=== PATIENT | female | born 1955 | race African-American/Black ===

== ENCOUNTER 2018-03-22 15:51 | Emergency (ER) | payer OTHER, MEDICAID ==
[~2018-03-22] VITALS: Ht 170.2 cm; Wt 74.8 kg
[~2018-03-22 15:51] MED LIST: ACETAMINOPHEN-1 EAC1 PO; ACIDOPHILUS1 EAC4 PO; AMARYL2 MG PO; ASPIRIN81 M2 PO; BACTRIM DS TAB1 EACH PO; BUSPAR15 MG; CARDIZEM CD240 MG PO; CARTIA XT240 M1 PO; CEFPODOXIME PR200 M1 PO; CELEBREX400 MG; CENTRUM SILVER1 EAC4 PO; CIPRO500 M1 PO; CIPROFLOXACIN500 M1 PO; CLEOCIN HCL150 MG PO; COLACE100 MG PO; DAILY VALUE1 EAC1 PO; EFFEXOR XR75 MG PO; FLAGYL500 MG PO; FOLIC ACID1 MG PO; GABAPENTIN 100100 MG PO; GLIPIZIDE 5 MG; GLUCOPHAGE500 MG PO; HARVONI 90-4001 EACH PO; HTN MED; HUMALOG100 UNIT/2 SQ; HYDROCHLOROTHIA25 M2 PO; INDERAL 20 MG T20 M1 PO; INSULIN LANTUS; KEFLEX500 MG PO; KEPPRA 500 MG500 M1 PO; KLOR-CON 1010 MEQ PO; LANTUS100 UNIT/M SUBQ; LASIX 20 MG TAB20 MG PO; LISINOPRIL20 MG PO; LOW DOSE ASPIRI81 M1; MAGNESIUM OXID400 MG PO; MAGOX 400400 MG PO; METFORMIN HCL500 MG PO; METOPROLOL SUC100 MG PO; MULTIVITAMINS PO; NAPROSYN500 MG PO; NEURONTIN 400400 M1 PO; NEURONTIN600 MG PO; NORVASC5 MG PO; ONDANSETRON HCL4 M2 PO; OXYCODONE HCL 55 MG PO; PEPCID20 MG PO; POTASSIUM20 PO; PRED FORTE 1% EY5 M1 OP; PREDNISONE 10 M10 MG PO; PREVACID30 MG PO; PRINIVIL40 MG PO; PROAIR HFA8.5 GM INH; PROPRANOLOL 1010 MG PO; PROTONIX40 M1 PO; TOPROL XL100 MG PO; TRAZODONE 150150 M1 PO; VANCOCIN 250 M250 M1 PO; VANCOMYCIN100 MG/ML PO; VENLAFAXINE HC150 M1 PO; VISTARIL 25 MG25 M1 PO; VITAMIN B-1100 M1 PO; VITAMIN B-12500 MCG PO; VITAMIN D 5050000 I1 PO; XANAX 0.5 MG0.5 MG PO; XANAX1 MG PO; ZOCOR 10 MG TAB10 MG PO; ZYPREXA5 MG PO; [UNRECOGNIZED DRUG - OTHER]
[2018-03-22] MEDS ORDERED: SYMBICORT160 MCG/4. INH (16:04)
[2018-03-22] MEDS ORDERED: BACTRIM DS TAB1 EACH PO (16:17)
[2018-03-22] MEDS ORDERED: CONSTULOSE10 GM/15 M PO (16:17)
[2018-03-22] MEDS ORDERED: XIFAXAN550 M1 PO (16:18)
[2018-03-22] MEDS ORDERED: EFFEXOR 5050 MG/1 T1 PO (16:18)
[2018-03-22] MEDS ORDERED: TRAZODONE 150150 M1 PO (16:19)
[2018-03-22] MEDS ORDERED: LISINOPRIL5 MG PO (16:19)
[2018-03-22] MEDS ORDERED: LIPITOR 20 MG T20 M1 PO (16:20)
[2018-03-22 16:39] LABS: ABSOLUTE BASOPHILS 0.1 thou/uL (0.0-0.2); ABSOLUTE EOSINOPHILS 0.3 thou/uL (0.0-0.7); ABSOLUTE LYMPHOCYTES 1.9 thou/uL (0.8-5.3); ABSOLUTE MONOCYTES 0.9 thou/uL (0.0-1.2); ABSOLUTE NEUTROPHILS 5.5 thou/uL (1.6-8.1); BASOPHILS 0.9 %; EOSINOPHILS 3.6 %; HEMATOCRIT 34.4 % (37.0-47.0); HEMOGLOBIN 11.3 gm/dL (12.0-15.0); MCH 29.1 pg (26.0-34.0); MCHC 32.9 g/dL (28.0-37.0); MCV 88.4 fL (80.0-100.0); MONOCYTES 10.4 %; NUCLEATED RBCS 0 /100WBC; PLATELET COUNT* 259 thou/uL (150-400); POLYS 63.1 %; RBC 3.89 mil/uL (4.20-5.00); RDW-CV 14.9 % (10.5-14.5); WBC 8.8 thou/uL (4.0-11.0)
[2018-03-22 16:48] LABS: ANION GAP 10 mmol/L (7-16); APTT 31.6 Seconds (25.0-31.3); BUN 36 mg/dL (7-18); CALCIUM 9.7 mg/dL (8.5-10.1); CHLORIDE 99 mmol/L (98-107); CO2 27 mmol/L (21-32); CREATININE 3.9 mg/dL (0.6-1.3); GLUCOSE 198 mg/dL (70-99); INR 1.2; POTASSIUM 4.3 mmol/L (3.5-5.1); PROTIME 12.1 Seconds (9.20-11.50); SODIUM 136 mmol/L (136-145)
[2018-03-22 16:56] LABS: ALBUMIN 3.1 g/dL (3.4-5.0); ALKALINE PHOSPHATASE 78 U/L (46-116); LIPASE 703 U/L (73-393); SGOT 28 U/L (15-37); SGPT 16 U/L (30-65); TOTAL BILIRUBIN 0.3 mg/dL (<0.1-1.0); TOTAL PROTEIN 7.6 g/dL (6.4-8.2); TROPONIN-I LEVEL <0.06 ng/mL (<0.06)
[2018-03-22 20:50] VITALS: BP 125/76
--- NOTE | 2018-03-23 12:04 | EKG ---
[place] [address] ELECTROCARDIOGRAM REPORT Name: FRANKIE RAPP [facility] [id number] Admission: 03/22/18 Attend Phys: Discharge: 03/22/18 Date of : 57 Report #: [id number] THIS REPORT FOR: //name// [facility] ED Test Date: 2018-03-22 Test Time: 16:37:10 Pat Name: FRANKIE RAPP Department: Room: Gender: F [employer] Law Clerk: ZULAY Lyman : 1955 Requested By: Windy Mello Order Number: [id number] MD: Robe Simmons Measurements Intervals [place] Rate: 87 P: 44 [place]: 143 QRS: -53 QRSD: 138 T: 20 QT: 383 QTc: 461 Interpretive Statements Sinus rhythm RBBB and LAFB Borderline ST elevation, lateral leads Compared to ECG 04/06/2016 21:34:35 ST (T wave) deviation now present Electronically Signed On 03-23-2018 12:04:13 CDT by Robe Simmons [email or web address] <ELECTRONICALLY SIGNED> By: Robe Simmons MD, [facility] 03/23/18 1204 [id number] Robe Simmons MD, [facility] /EPI
== END 2018-03-22 20:53 | disposition short-term general hospital (02) ==
LOC: M.ERS 15:51
PROVIDERS: Nurse Practitioner Family
DX: R18.8 Other ascites (principal); N17.9 Acute kidney failure, unspecified; I10 Essential (primary) hypertension; F32.9 Major depressive disorder, single episode, unspecified; E11.21 Type 2 diabetes mellitus with diabetic nephropathy; F41.9 Anxiety disorder, unspecified; J44.9 Chronic obstructive pulmonary disease, unspecified; Z85.05 Personal history of malignant neoplasm of liver; F17.210 Nicotine dependence, cigarettes, uncomplicated; Z88.8 Allergy status to other drugs, medicaments and biological substances

== ENCOUNTER 2018-09-25 19:17 | Emergency (ER) | payer OTHER, MEDICAID ==
[~2018-09-25] VITALS: Ht 167.6 cm; Wt 71.7 kg
[~2018-09-25 19:17] MED LIST changes: +CONSTULOSE10 GM/15 M PO; +EFFEXOR 5050 MG/1 T1 PO; +LIPITOR 20 MG T20 M1 PO; +LISINOPRIL5 MG PO; +SYMBICORT160 MCG/4. INH; +XIFAXAN550 M1 PO
[2018-09-25] MEDS ORDERED: CIPRO500 MG PO (19:30)
[2018-09-25] MEDS ORDERED: OXYCODONE-APAP1 EAC6 PO (20:48)
[2018-09-25 21:09] VITALS: BP 185/78
== END 2018-09-25 21:10 | disposition home or self-care (01) ==
LOC: M.ERS 19:17
DX: S99.822A Other specified injuries of left foot, initial encounter (principal); F17.210 Nicotine dependence, cigarettes, uncomplicated; I10 Essential (primary) hypertension; F32.9 Major depressive disorder, single episode, unspecified; E11.40 Type 2 diabetes mellitus with diabetic neuropathy, unspecified; F41.9 Anxiety disorder, unspecified; J44.9 Chronic obstructive pulmonary disease, unspecified; Z88.8 Allergy status to other drugs, medicaments and biological substances; Z85.05 Personal history of malignant neoplasm of liver; W10.9XXA Fall (on) (from) unspecified stairs and steps, initial encounter; Y93.89 Activity, other specified; Y92.89 Other specified places as the place of occurrence of the external cause; Y99.8 Other external cause status

== ENCOUNTER 2020-08-09 00:10 | Emergency (ER) | payer MEDICARE, MEDICAID ==
[~2020-08-09] VITALS: Ht 175.3 cm
[~2020-08-09 00:10] MED LIST changes: +CIPRO500 MG PO; +OXYCODONE-APAP1 EAC6 PO
[2020-08-09] MEDS ORDERED: AMLODIPINE PO (00:23)
[2020-08-09] MEDS ORDERED: CALCIUM CARBON500 MG (00:24)
[2020-08-09] MEDS ORDERED: CARVEDILOL PO (00:24)
[2020-08-09] MEDS ORDERED: HYDRALAZINE 5050 MG (00:25)
[2020-08-09] MEDS ORDERED: CATAPRES0.1 MG (00:25)
[2020-08-09] MEDS ORDERED: MAGOX 400400 MG (00:25)
[2020-08-09] MEDS ORDERED: ONDANSETRON HCL4 M2 (00:26)
[2020-08-09] MEDS ORDERED: NOVOLOG100 UNIT/M (00:26)
[2020-08-09] MEDS ORDERED: NICOTINE TRANSD21 M1 (00:26)
[2020-08-09] MEDS ORDERED: SEROQUEL 25 MG25 M1 (00:27)
[2020-08-09] MEDS ORDERED: PROTONIX40 M2 (00:27)
[2020-08-09] MEDS ORDERED: SIMVASTATIN PO (00:27)
[2020-08-09] MEDS ORDERED: VITAMIN B-1100 M2 (00:28)
[2020-08-09] MEDS ORDERED: VALPROIC ACID250 MG (00:28)
[2020-08-09] MEDS ORDERED: VITAMIN D2 PO (00:29)
[2020-08-09 02:16] LABS: HEMOGLOBIN 7.8 gm/dL (12.0-15.0); MPV 7.1 fl. (7.2-11.1); NUCLEATED RBCS 0 /100WBC
[2020-08-09 02:25] VITALS: BP 141/71
[2020-08-09 02:31] LABS: HEMATOCRIT 23.8 % (37.0-47.0); MCH 29.3 pg (26.0-34.0); MCHC 32.8 g/dL (28.0-37.0); MCV 89.5 fL (80.0-100.0); PLATELET COUNT* 143 thou/uL (150-400); RBC 2.66 mil/uL (4.20-5.00); RDW-CV 16.2 % (10.5-14.5); WBC 4.2 thou/uL (4.0-11.0)
[2020-08-09 02:40] LABS: CALCIUM 8.1 mg/dL (8.5-10.1); CREATININE 3.3 mg/dL (0.6-1.3)
[2020-08-09 02:45] LABS: ALBUMIN 2.3 g/dL (3.4-5.0); TOTAL BILIRUBIN 0.2 mg/dL (<0.1-1.0)
[2020-08-09 02:56] LABS: APTT 25.7 Seconds (25.0-31.3); INR 1.1; PROTIME 11.9 Seconds (9.20-11.50)
[2020-08-09 03:51] LABS: ABSOLUTE EOSINOPHILS 0.1 thou/uL (0.0-0.7); ABSOLUTE LYMPHOCYTES 0.8 thou/uL (0.8-5.3); ABSOLUTE MONOCYTES 0.5 thou/uL (0.0-1.2); ABSOLUTE NEUTROPHILS 2.7 thou/uL (1.6-8.1); GIANT PLATELETS OCCASIONAL; METAMYELOCYTES 1 %; PLATELET ESTIMATE DECREASED
[2020-08-09 03:52] LABS: LARGE PLATELETS FEW
== END 2020-08-09 02:25 | disposition short-term general hospital (02) ==
LOC: M.ERS 00:10
PROVIDERS: Personal Emergency Response Attendant
DX: S06.5X1A Traumatic subdural hemorrhage with loss of consciousness of 30 minutes or less, initial encounter (principal); S06.6X1A Traumatic subarachnoid hemorrhage with loss of consciousness of 30 minutes or less, initial encounter; S01.81XA Laceration without foreign body of other part of head, initial encounter; S20.211A Contusion of right front wall of thorax, initial encounter; I10 Essential (primary) hypertension; E11.40 Type 2 diabetes mellitus with diabetic neuropathy, unspecified; J44.9 Chronic obstructive pulmonary disease, unspecified; F17.210 Nicotine dependence, cigarettes, uncomplicated; Z88.8 Allergy status to other drugs, medicaments and biological substances; Z79.899 Other long term (current) drug therapy; Z79.82 Long term (current) use of aspirin; Z79.4 Long term (current) use of insulin; Z87.820 Personal history of traumatic brain injury; W18.30XA Fall on same level, unspecified, initial encounter; Y93.01 Activity, walking, marching and hiking; Y92.89 Other specified places as the place of occurrence of the external cause; Y99.9 Unspecified external cause status